=== PATIENT | female | born 1950 | race Caucasian/White ===

== ENCOUNTER 2018-05-03 19:04 | Emergency (ER) | payer MEDICARE, OTHER, SELFPAY ==
[2018-05-03 19:05] VITALS: BP 118/72; PULSE 85; RESP 18; TEMP 37.1; O2SAT 96; BMI 29.1
--- NOTE | 2018-05-03 19:30 | RAD_ITS ---
STUDY: X-RAY - RIGHT KNEE REASON FOR EXAM: Female, 67 years old. Fall. Knee pain. TECHNIQUE: 4 view(s) of the knee. COMPARISON: None. FINDINGS: Normal visualized distal femur. Normal visualized proximal tibia and fibula. Normal proximal tibiofibular articulation. There is mild medial compartmental arthrosis. Normal lateral femorotibial compartment. There is mild patellofemoral compartmental arthrosis. There is an ovoid calcification projected adjacent to the medial femoral condyle posteriorly which is likely secondary to remote trauma. RAD/Knee 3 Views IMPRESSION: Osteoarthritic changes with no acute abnormality. Focal calcification compatible with remote trauma. Electronically Signed: Darwin Ely MD at 20:17 EDT , Service support ,
[2018-05-03] MEDS: oxyCODONE 5 MG Tablet 10 MG PO ×2 (19:40→20:42)
--- NOTE | 2018-05-03 19:44 | ED.DCSUM_ITS ---
- ER Visit Summary Date of Service: 05/03/18 Chief Complaint: Atraumatic right knee pain History of Present Illness: The patient is a 67 F no significant past medical history. She states she had a prior left knee meniscal tear and thinks that now she has one in the right. She says it occurred with normal wear and tear no injury. She denies fever or redness. The right knee is more painful with ambulating and is mildly swollen. She denies other complaints. She is an appointment to see orthopedic physician at the [facility] Dr. Forrest Wakefield but wanted to have x-rays done today. She understands a meniscal tear cannot be seen on plain films. Physical Examination: Ill-appearing 67-year-old female. Vital signs are stable afebrile. She is in no acute distress. H EENT exam unremarkable. Neck nontender. Lungs clear to auscultation bilaterally. Heart regular rate and rhythm no murmur. Abdomen soft nontender. Extremities she is moving all 4. She has pain on palpation of the right medial knee joint. There is mild swelling and small effusion. There is no redness or warmth. She has decreased extension due to pain. ACL, PCL, MCL, LCL appear to be intact. Distally her right foot is neurovascularly intact with normal DP pulse. Normal touch sensation. Test Results: Right knee x-ray shows no acute abnormality. No fractures. Emergency Department Course and Treatment: I went over the x-rays with the patient. She was given 1 p.o. Percocet here be given prescription for 20. And follow-up with Dr. Greg Wakefield of orthopedics to have further evaluation of her knee and possibly an MRI. Treatment Plan: Ice and elevate knee. Motrin and limited Percocet for pain. Follow-up with orthopedic physician. Disposition: Discharge Impression: Acute right knee pain secondary to internal derangement This note was generated with [employer] dictation software. It may contain incorrect words, spelling, and punctuation that were not noted in review of the chart prior to signing ED Disposition - Plan for ED Patient: Chief Complaint: Lower Extremity Injury Referrals: Felix Araiza MD [Primary Care Provider] -
--- NOTE | 2018-05-03 20:20 | ED.DEP ---
ED Disposition - Plan for ED Patient: Disposition: Home or Assisted Living Chief Complaint: Lower Extremity Injury Instructions: ED Meniscal Injury Knee Poss Prescriptions: Oxycodone HCl/Acetaminophen [Percocet 5/325] 1 - 2 tab PO Q6H PRN PRN #20 tab PRN Reason: Pain Referrals: Forrest Wakefield MD [STAFF PHYSICIAN] - As soon as possible Additional Instructions: Ice and elevate right knee. Motrin and Percocet as needed for pain and inflammation. Call follow-up with Dr. Greg Wakefield. Your x-rays today were unremarkable. However the plain films do not evaluate for a meniscal injury. You may need further imaging such as an MRI.
[2018-05-03 20:43] VITALS: BP 143/60; PULSE 86; RESP 16; O2SAT 97
--- NOTE | 2018-05-03 20:53 | NURSING ---
signed medical release for xray
[2018-05-03] MEDS: Ondansetron 8 MG Tablet 16 MG PO (22:07)
--- NOTE | 2018-05-03 22:14 | ED.RN ---
pt called in with dizziness and nausea. Dr Jo ordered home pack of zofran. friend picked up for pt.
== END 2018-05-03 21:01 | disposition home or self-care (01) ==
PROVIDERS: Emergency Provider Emergency Medicine; Family Provider Family Medicine; PCP Family Medicine
DX: M25.561 Pain in right knee (principal); M23.91 Unspecified internal derangement of right knee
CPT/HCPCS: 73562; 99285

== ENCOUNTER 2018-08-24 15:47 | Outpatient (RCR) | payer MEDICARE, OTHER, SELFPAY ==
--- NOTE | 2018-08-24 17:20 | HP.PTEVAL_ITS ---
Patient's Visit Information CHINO CASEY is a 68 year old F referred to Physical Therapy by Ana Beltran DO with a diagnosis of R knee torn med and lat meniscus. Date of Evaluation: 08/24/18 Physical Therapist: Colton Vance, PT, - Visit Plan Frequency: 1x/Week Duration: 1 Week Plan: Issue HEP consisting of core and R LE strengthening ex's next visit. - Subjective Subjective: Pt reports she injured her R knee on 04/22/18. Pt reports she was walking a few days after that when she fell due to her R knee locking up. Pt reports it took her 3 days to get her knee to unlock. Pt reports she had an MRI which revealed a tear in her medial and lateral meniscus. Pt [id number] her surgeon told her e tears were too bad for surgery. Pt reports she would like to attempt PT first prior to having surgery. Pt reports sig diff with negotiating stairs secondary to pain. Pt also notes sleep difficulty at this time secondary to pain. 2/10 at rest, 8/10 at worst - Pain R knee Pain Intensity (Out of 10): 2 Pain Intensity Range: 8 - Objective Neuro: B LE sensation is WNL to light touch. B achilles reflex= 2/3. Girth at joint line: L knee 37 cm, R knee 38 cm. ROM: L knee 0-138 degrees. R knee 0-10-127 degrees. MMT: L knee 5/5 throughout. R knee 4/5 and painful - Goals Goal 1:: I with HEP in 1 visit Goal Time Frame: 1 Week - Rehabilitation Potential Physical Therapy Diagnosis: R knee pain, weakness, and diff with ambulation secondary to torn meniscus in R knee Rehabilitation Potential: Good - Anticipated Interventions Patient/Client Instruction: Educate patient on: Condition, Plan of Care For the Purpose of:: To improve self management Therapeutic Exercise to Include: Strength training, Endurance training, Balance training, Flexibilty training, Gait and locomotor training, Dynamic Lumbar Stabilization For the Purpose of:: To decrease pain, To increase ROM, To improve muscle performance and motor function Cryotherapy (ice pack, ice massage): Yes For the Purpose of:: To decrease pain Thank you for the opportunity to evaluate your patient. For Medicare and Medicare HMO plans, please review the plan of care and approve it. It will need to be FAXED BACK to us at [phone] for Medicare purposes. Please let me know if there are questions or concerns regarding this plan of care. Physician Signature: D ate:
--- NOTE | 2018-11-11 08:02 | HP.PT.NRP ---
HP - Discharge Summary (1) - Patient Information CHINO CASEY was seen in my office for initial evaluation on 08/24/18. The following Plan of Care was established for this patient: Initial Frequency: 1x/Week Initial Duration: 1 Week - Anticipated Interventions Patient/Client Instruction: Educate patient on: Condition, Plan of Care For the Purpose of:: To improve self management Therapeutic Exercise to Include: Strength training, Endurance training, Balance training, Flexibilty training, Gait and locomotor training, Dynamic Lumbar Stabilization For the Purpose of:: To decrease pain, To increase ROM, To improve muscle performance and motor function Cryotherapy (ice pack, ice massage): Yes For the Purpose of:: To decrease pain This patient was last seen in our office . Pertinent comments regarding their Physical therapy will appear below: Pt was evaluated for R knee pain on the date of 08/24/18. I planned on seeing this pt for 1 more visit to educate her on a HEP as discussed in our evaluation, however, pt has not returned through todays date. Pt is discontinued at this time. At this point I will be discontinuing this patient from physical therapy. I would be happy to see this patient again in the future if found appropriate by the physician. Thank you! Colton Vance, PT, ATC
== END 2018-08-24 19:00 | disposition home or self-care (01) ==
LOC: PT 15:47
PROVIDERS: Family Provider Family Medicine; PCP Family Medicine; Referring Provider Orthopaedic Surgery; Visit Provider Orthopaedic Surgery
DX: M17.11 Unilateral primary osteoarthritis, right knee (principal)
CPT/HCPCS: 97161

== ENCOUNTER → 2018-12-24 09:03 | Outpatient (CLI) | payer MEDICARE, OTHER, SELFPAY ==
[2018-12-15 14:17] VITALS: BMI 29.1
--- NOTE | 2018-12-24 09:06 | MRI_ITS ---
STUDY: MRI ABDOMEN WITH AND WITHOUT CONTRAST REASON FOR EXAM: Female, 68 years old. Palpable abdominal mass, sharp pain, 4 years. Possible spigelian hernia. TECHNIQUE: Standardized fat and water weighted pulse sequences were obtained in all 3 orthogonal planes post contrast administration. 7 ml of Gadavist contrast material was administered intravenously for the contrast portion of the examination. COMPARISON: None. FINDINGS: Imaging was obtained from the level of the kidneys to the level of the superior acetabula. Right lower quadrant small spigelian hernia containing fat. The hernia defect measures approximately 2.1 cm. Minimal lobulation of fat bulging into the hernia. Measuring approximately 2.3 cm in diameter. Osseous structures exhibit no acute abnormality. There is mild scoliosis and there is L2-L3 mild retrolisthesis, L4-L5 mild anterior listhesis, mild multilevel disc narrowing with disc desiccation and annular disc bulging between L2 and L5, with facet hypertrophy, contributing to mild multilevel foraminal stenosis. Visualized portions of the pancreas appear normal without ductal ectasia. Common bile duct nondilated. Normal appearance of the gallbladder. Normal appearance of the inferior most liver. Kidneys, collecting systems, ureters normal. Grossly normal urinary bladder evaluated only in the coronal and sagittal planes. Multiple fibroids of the uterine fundus. The largest measures 3.2 cm. There is no visible pelvic or retroperitoneal lymphadenopathy. Vascular structures are unremarkable. Evaluated loops of small and large bowel exhibits no acute other maladies. MRI/MRI Abd WITH and W/O Contrast IMPRESSION: Small right-sided spigelian hernia. Multilevel lumbar spondylosis. Mild scoliosis. Fibroid uterus. Electronically Signed: Ra Vee MD at 20:33 EST Tel , Service support ,
[2018-12-24 10:05] LABS: CREATININE FINGERSTICK 0.9 mg/dL (0.55-1.02); EGFR FINGERSTICK > 60.0000 mL/min (>60)
== END ==
PROVIDERS: Family Provider Family Medicine; PCP Family Medicine; Referring Provider Surgery; Visit Provider Surgery
DX: R19.01 Right upper quadrant abdominal swelling, mass and lump (principal); R10.9 Unspecified abdominal pain
CPT/HCPCS: 74183; A9585

== ENCOUNTER 2019-04-15 09:00 | Day surgery (SDC) | payer MEDICARE, OTHER, SELFPAY ==
[2019-03-03 07:47] VITALS: BMI 28.6
--- NOTE | 2019-03-17 04:12 | HP_ITS ---
Intake Vital Signs 03/17/19 Body Mass Index (BMI) 28.6 03/17/19 Height 5 ft 5 in 03/17/19 Weight: 170 lb 5 oz 03/17/19 Body Mass Index (BMI) 28.3 03/17/19 Blood Pressure 117/67 03/17/19 Blood Pressure Location Rt brachial 03/17/19 Blood Pressure Position Sitting 03/17/19 Respiratory Rate 20 H 03/17/19 Pulse Rate 81 03/17/19 Pulse Ox 98 Intake Visit Reasons: Abdominal Pain Chief Complaint: spigelian hernia/ increased abd pain Support Representative Required: No Is patient in pain?: Yes (1 ) Allergies meloxicam Adverse Reaction (Verified 03/17/19 13:23) diarrhea oxycodone [From Percocet] Adverse Reaction (Verified 03/17/19 13:23) GI Upset Medications albuterol sulfate HFA 90 mcg/actuation aerosol inhaler INHALATION 25 Days #18 g 03/01/19 [History Confirmed 03/17/19] beclomethasone dipropionate 40 mcg/actuation aerosol inhaler mcg INHALATION 03/01/19 [History Confirmed 03/17/19] conj estrogen-medroxyprogesterone 0.3 mg-1.5 mg tablet PO 28 Days #28 tab 03/01/19 [History Confirmed 03/17/19] diazepam 2 mg tablet 1 mg PO BID-QID PRN 15 Days #15 tab 03/03/19 [History Confirmed 03/17/19] aspirin 325 mg tablet 325 mg PO DAILY 03/17/19 [History Confirmed 03/17/19] Is last menstrual period known: No Post menopausal: Yes Patient : No PFSH Medical History Abnormal electrocardiogram (Chronic) Spigelian hernia (Acute) Right lower quadrant pain (Chronic) Osteoarthritis (Chronic) Osteopenia (Chronic) Rosacea (Chronic) Premature ventricular contractions (Resolved) Syncope (Resolved) Surgical History History of arthroscopy of left knee (Resolved) History of colonoscopy (Resolved) Family History Father Asthma Diabetes Mother Cancer Social History Smoking Status: Never smoker HPI HPI HPI: CHINO CASEY, is a 68 F who presents to the office today for HPI HPI Surgical H&P: Yes HPI: CHINO CASEY, is a 68 F who presents to the office today for an update history and physical for a right lower quadrant/spigelian hernia. Patient denies recent hospitalizations or illnesses. Patient notes she has been having increased discomfort in the evenings. She denies nausea, vomiting. She denies recent changes in bowel habits. She denies a cardiac history. She notes in the past her EKG's have been abnormal. Dr. Whiteside performed a cardiac clearance placing the patient at low risk. Patient's previous history per Dr. Judd: CHINO CASEY, is a 68 F who presents to the office today for for ongoing surgical follow-up and consultation regarding a 5-year history of right lower quadrant pain which recently has been aggravated. I initially had a chance to see her on December 15, 2018. At that time on clinical examination I was suspicious for a lipoma or spigelian hernia right lower quadrant. She had a CT scan performed at the [facility] and it was interpreted as normal. I actually got to speak to the interpreting radiologist and I felt that there was soft tissue fullness involving the oblique musculature right lower quadrant. He disagreed. Subsequently on December 24, 2018 at the [facility] I obtained an MRI. In the right lower quadrant there is a small spigelian hernia containing fat. The hernia defect measures 2.1 cm in diameter. CHINO CASEY, is a 68 F who presents to the office today for surgical consultation regarding a 4-5-year history of right lower quadrant abdominal pain. She states that initially it started as a stitch in her side. It is worse with walking. Her primary care physician is Dr. Felix Araiza and the patient is referred for second surgical opinion. A written copy of my surgical consult recommendations will be returned to Dr. Mike. June 2018 the patient took up swimming in hopes of strengthening her abdominal musculature. She complains however that when she tries to walk that she has this sharp pain in the right side. She cannot actually detect a mass or a bulge. She will rest and it will improve. Her last colonoscopy was 2016 was not remarkable. She does have degenerative disease of her knees. The patient was evaluated by Dr. David Schulte on April 30, 2018.. The etiology of her chest pain was not determined. He recommended obtaining a CT scan. On May 29, [address] scan was obtained at the [facility]. There was not felt to be any acute findings. The patient has not improved despite her swimming exercise and improved core strength ROS General General: Yes fatigue; no weight change, appetite, colon cancer, breast cancer or weakness HEENT HEENT: No difficulty swallowing, eye injury, eye surgery, swollen glands or hoarseness Endo Endocrine: No thyroid disease, diabetes mellitus, thyroid cancer, Hair loss, heat intolerance or cold intolerance Skin Skin: No rash or changing moles Breast Breast: No left breast lump, right breast lump, nipple discharge, breast pain, abnormal mammogram, abnormal US or breast enlargement Musc Musculoskeletal: Yes arthritis; no back problems, rheumatoid arthritis, gout or joint pain Cardio Cardiovascular: No murmur, pacemaker, heart disease, atrial fibrillation, high blood pressure, heart attack, heart stent, palpitations, shortness of breat with exertion or chest pain Psych Psychiatric: No depression, anxiety or hearing voices Resp Respiratory: No shortness of breath, No sleep apnea, No cough, No COPD, No asthma, No emphysema, No wheezing Gastro Gastrointestinal: Yes abdominal pain, No nausea or vomiting, No diarrhea, No constipation, No blood in stool, No acid reflux, No hemorrhoids, No ulcers, No gallbladder problem, No black,tarry stools Ge[place]any Hematologic: No blood thinners, No blood disorders, No bleeding, No anemia, No blood clots Neuro Neurologic: No weakness Exam Const General: cooperative, healthy appearing, comfortable, no acute distress [facility] Head: normal to inspection Eyes General: appearance normal, both eyes and all related structures Neck Neck: normal visual inspection Neck mass: No Chest Breast Palpation: No nipple discharge Resp Effort & Inspection: normal respiratory effort Auscultation: clear to auscultation bilaterally Cardio Rate: regular rate Rhythm: regular rhythm Heart Sounds: no murmurs GI Inspection: normal to inspection, obesity Palpation: soft, hernia (Right lower quadrant hernia palpated suprior to the right groin. Reducible.) Auscultation: normal bowel sounds Skin General: no rashes or lesions noted Neuro General: no focal motor deficits, CN's II-XI intact bilaterally Extrem General: normal to inspection Psych Appearance: grossly normal Affect: normal affect Assessment & Plan Problems 1. Spigelian hernia K43.[address] Judd will plan to perform a laparoscopic spigelian hernia repair with possible mesh. Procedure details, risks, and benefits have been reviewed with the patient. Post-operative instructions have been discussed with the patient. Patient has been offered sooner dates for her procedure. Patient is aware Dr. Judd will out of town for 2 weeks in March. Patient would like to continue to keep her date at the end of March. She has had the opportunity to ask and have questions answered. Patient verbally understands and agrees with the plan. Coding Level of Care Code No Charge Diagnoses Spigelian hernia K43.9 Comment Update H&P 03/17/19 7279 <Electronically signed by Chiquis thibodeaux PA-C> Date _ Chiquis Castellon PA-C I have re-examined the patient. There are no clinical changes since date of exam.
[2019-03-17 13:23] VITALS: BMI 28.6
--- NOTE | 2019-04-08 14:09 | EKG12_ITS ---
Test Reason : PREOP Blood Pressure : / mmHG Vent. Rate : 068 BPM Atrial Rate : 068 BPM P-R Int : 160 ms QRS Dur : 088 ms QT Int : 416 ms P-R-T Axes : 045 -28 054 degrees QTc Int : 442 ms Sinus rhythm with occasional Premature ventricular complexes Septal infarct (cited on or before 03-NOV-2012) Inferior infarct (cited on or before 03-NOV-2012) Abnormal ECG Confirmed by NITZA RICHARDS, DEONNA ([id number]), deputy editor in chief JUMA ONEILL ([id number]) on 04/12/2019 11:35:04 AM Referred By: Mike Judd Confirmed By:SHELLY GODDARD MD
[2019-04-08 14:27] LABS: Hematocrit 43.1 % (37-47); Hemoglobin 14.2 g/dl (12.0-15.0); Mean Corp Hgb Conc 32.9 g/gl (32-36); Mean Platelet Vol. 9.3 fl (6.2-12.0); Platelet Count 234 K/mm3 (150-450); RBC Distribution Width CV 13.4 % (11.6-14.6); RBC Distribution Width SD 43.5 fl (35.1-43.9); White Blood Count 6.7 K/mm3 (4.4-11.0)
[2019-04-08 14:35] LABS: Scan Indicated on CBC? Y/N NO
[2019-04-08 15:10] LABS: Anion Gap 6 (5-15); BUN 13 mg/dL (7-18); BUN/Creat Ratio 19.3 RATIO (10-20); Calcium,Total 9.2 mg/dL (8.5-10.1); Chloride 107 mmol/L (98-107); Creatinine, Serum 0.67 mg/dL (0.55-1.02); EST Glomerular Filtration Rate 93 mL/min (>60); Est Glom Filt Rate - Afr Amer 113 mL/min (>60); Glucose 103 mg/dL (74-106); Sodium Level 138 mmol/L (136-145)
[2019-04-15] VITALS (7 sets, daily range): BP systolic 88–115; BP diastolic 44–64; PULSE 52–65; RESP 16–18; TEMP 36.2–37.7; O2SAT 98–100; BMI 27.8
[2019-04-15] MEDS: Cefazolin 2 GM in 0.9% Normal Saline 100 ML IV (11:08)
[2019-04-15] MEDS: Bupivacaine Mpf 0.5% 30 ML VIAL (12:15)
--- NOTE | 2019-04-15 12:16 | DCINST_ITS ---
Discharge Diet: Light diet - advance as tolerated - if you have questions about your diet instructions, please talk to you doctor. Discharge Activity: May Not Drive - for 3-5 days or while taking narcotic pain medicine. May shower in (days): 1 Lifting Restrictions: 10 pounds Call your doctor if your incision/area has: Continuous Slow Oozing, Sudden Increased Bleeding, Increased Pain/ Swelling, Increased Redness, Foul Smelling Discharge Call your doctor if you observe: Fever of 101 or Higher Suture Line Care: Avoid Pulling/Pushing, Avoid Pinching/Bending Additional Dressing/Incision Instructions:: Change or remove dressing in 4 days. Leave steri-strips in place for 1 week. Allergies/Adverse Reactions: Allergies meloxicam Adverse Reaction (Verified 04/15/19 09:13) diarrhea oxycodone [From Percocet] Adverse Reaction (Verified 04/15/19 09:13) GI Upset Medications to take at Discharge albuterol sulfate HFA 90 mcg/actuation aerosol inhaler INHALATION PRN 25 Days #18 g 03/01/19 beclomethasone dipropionate 40 mcg/actuation aerosol inhaler mcg INHALATION 03/01/19 conj estrogen-medroxyprogesterone 0.3 mg-1.5 mg tablet 1 tab PO DAILY 28 Days #28 tab 03/01/19 diazepam 2 mg tablet 1 mg PO BID-QID PRN 15 Days #15 tab 03/03/19 Estrogen,Con/M-Progest Acet [Prempro 0.3 mg-1.5 mg Tablet] 1 tab PO DAILY 04/08/19 Hydrocodone Bitart/Apap 5-325 [[place] 5MG-325MG] 1 tablet PO Q6H PRN PRN 2 Days #5 tablet 04/15/19 The following prescriptions were given: Hydrocodone Bitart/Apap 5-325 [[place] 5MG-325MG] 1 tablet PO Q6H PRN PRN 2 Days #5 tablet PRN Reason: Pain Transmission Status: Sent to [facility]/pharmacy #[id number] Primary Care Physician: Felix Araiza MD [Primary Care Provider] - Test Results: Test results from this visit will be discussed in further detail at your follow- up appointment, if applicable. Please Follow Up With: Mike Judd MD - [phone] When: Call to make an appointment to be seen in about 10 days.
--- NOTE | 2019-04-15 12:18 | PCM.OPRPT ---
Problem List (1) Spigelian hernia Status: Acute Report of Operation Date of Procedure: 04/15/19 Pre-Operative Diagnosis: Right lower quadrant spigelian hernia Post-Operative Diagnosis: Same Surgery/Procedure Performed:: Laparoscopic right lower quadrant spigelian herniorrhaphy with [address] mesh lot number [id number]. Expiry date 06/16/2020. Reference #[id number] Description of Surgical Findings:: Timeout and informed consent was obtained. 68-year-old female taken the operative placement table underwent general endotracheal intubation anesthesia. Ancef 2 g given intravenously. The abdomen was sterilely prepped and draped. Ioban draping was used. 0.5% Marcaine was used as local anesthetic. Local was instilled at the umbilicus sharp dissection carried down through substance tissue holding sutures of 0 Vicryl placed varies needle inserted saline drop test performed the abdomen was insufflated with CO2 to a pressure of 10 minutes mercury pressure 5 Serna trocar inserted final and the laparoscope inserted evidence revealed a significant right lower quadrant spigelian hernia. I placed additional 5 mm trochars on the right mid abdomen in the left lower quadrant. I used shear scissors to incise the peritoneum and I completely dissected free the spaghetti and hernia getting access to the retrorectus space. Were needed hemostasis with 10 letter cautery. The inferior epigastrics did require securing with hemo-lock clips due to the some sidebranch bleeding which was nicely controlled. I then completely freed enough space to allow for placement of a ventral Israel mesh. The defect measured approximately 2-1/2 3 cm in diameter. Guided laparoscopically I made a transverse incision in the right lower quadrant directed to Darline through the fascial defect I then used that same spot to introduce the 8 cm diameter ventral Israel. The tails were secured to the fascia with interrupted 0 Nurolon. That fascia was closed externally with 0 Nurolon simple sutures. The mesh appeared to lay in a very nice position. I then reapproximated the peritoneum to completely obliterate access to the mesh. I did require several secure strap jacinto to achieve that. Good securement was achieved. The mesh appeared to lie in very nice position. I then performed a mini tap block on the right side visualizing with the laparoscope and using 0.5% Marcaine lateral to the hernia site and injecting into the transversalis fascia oblique space. Trochars removed under visualization the abdomen was allowed to deflate the CO2. The fascia at the umbilicus approximately a interrupted 0 Vicryl [id number] suture. Skin edges approximate interrupted 4-0 Monocryl subdermal stitches. Steri-Strips Telfa and OpSite dressings applied. Sponge and instrument and needle counts were reported to the surgeon to be correct. Blood loss was minimal at approximately 50 cc. She tolerated procedure well was taken to the recovery area in satisfactory condition. Specimens none. Drains none. Blood loss 50 cc. Mike Judd M.D., F.A.C.S. Type of Anesthesia:: General Anesthesiologist: Darwin Woodruff
[2019-04-15] MEDS: HYDROcodone Bitartrate/Apap 5/325 Tablet PO ×2 (13:11→13:51)
== END 2019-04-15 14:38 | disposition home or self-care (01) ==
LOC: SDC 09:01 → AC 09:03
PROVIDERS: Family Provider Family Medicine; PCP Family Medicine; Referring Provider Surgery; Visit Provider Surgery
PROC: 0WQF4ZZ Repair Abdominal Wall, Percutaneous Endoscopic Approach (ICD-10-PCS; CPT 49652; principal; 2019-04-15 10:40)
DX: K43.9 Ventral hernia without obstruction or gangrene (principal); M19.90 Unspecified osteoarthritis, unspecified site; Z79.899 Other long term (current) drug therapy; L71.9 Rosacea, unspecified
CPT/HCPCS: 49652; 36415; 80048; 85027; 93005; J7120; C1781; J2405

== ENCOUNTER 2019-06-23 19:33 | Emergency (ER) | payer MEDICARE, OTHER, SELFPAY ==
[2019-04-15 09:21] VITALS: BMI 27.8
[2019-06-23 19:34] VITALS: BP 153/82; PULSE 92; RESP 16; TEMP 36.3; O2SAT 96; BMI 28.8
--- NOTE | 2019-06-23 20:52 | ED.DEP ---
ED Disposition - Plan for ED Patient: Instructions: Dog Bite Prescriptions: Amox/Clavulanate Tablet [Augmentin Tablet] 875 mg PO Q12H #20 tablet Referrals: Felix Araiza MD [Primary Care Provider] -
--- NOTE | 2019-06-23 21:03 | ED.VISSUMM ---
- ER Visit Summary Date of Service: 06/23/19 Chief Complaint: Dog bite left leg History of Present Illness: The patient is a 69 F presenting with dog bite left leg. Patient states her friend's Randy Arellanopherd bit her left leg just prior to arrival. She is unsure of her last tetanus immunization. She states the bleeding is now controlled. She is requesting to be discharged home. She is able to ambulate. She denies other injuries. Physical Examination: Vitals are stable. Patient is afebrile. Alert no acute distress. HEENT exam is unremarkable. Neck is supple. Lungs are clear and equal bilaterally. Heart is regular rate and rhythm. Extremities 2.5 cm wound proximal left thigh with surrounding ecchymosis. Active full range of motion. Neurovascularly intact distally. Skin is warm and dry. No focal neurologic deficit. Remainder of exam is unremarkable. Emergency Department Course and Treatment: Patient was given tetanus IM. She was given Augmentin. Wound was copiously irrigated and dressed. Advised to watch for signs of infection. Advised to follow-up with her primary care physician. Advised return to ED for worsening complaints. Disposition: Discharge home Impression: Dog bite, left lower extremity This note was generated with [employer] dictation software. It may contain incorrect words, spelling, and punctuation that were not noted in review of the chart prior to signing ED Disposition - Plan for ED Patient: Instructions: Dog Bite Prescriptions: Amox/Clavulanate Tablet [Augmentin Tablet] 875 mg PO Q12H #20 tab Prescription Printed Referrals: Felix Araiza MD [Primary Care Provider] -
[2019-06-23] MEDS: Amox/Clavulanate 875 MG Tablet PO (21:06)
[2019-06-23] MEDS: Diphth,Pertuss(Acell),Tet Vac 0.5 ML Vial IM (21:06)
[2019-06-23 21:13] VITALS: BP 164/77; PULSE 96; RESP 20; O2SAT 97
[2019-06-23 21:29] VITALS: BP 151/77
== END 2019-06-23 21:30 | disposition home or self-care (01) ==
LOC: ED 20:14
PROVIDERS: Emergency Provider Emergency Medicine; Family Provider Family Medicine; PCP Family Medicine
DX: S70.372A Other superficial bite of left thigh, initial encounter (principal); W54.0XXA Bitten by dog, initial encounter; Y93.9 Activity, unspecified; Y92.9 Unspecified place or not applicable
CPT/HCPCS: 90715; 99283

== ENCOUNTER 2019-06-28 15:28 | Emergency (ER) | payer MEDICARE, OTHER, SELFPAY ==
[2019-06-28 15:29] VITALS: BP 162/82; PULSE 96; RESP 16; TEMP 37.1; O2SAT 96; BMI 28.6
--- NOTE | 2019-06-28 15:43 | VDLE_ITS ---
Reason For Study: Pain Procedure LEFT Exam performed portable in ED. GSV is normal. A preliminary report was called and/or faxed CFV is compressible, spontaneous, phasic, to [place]. competent, and demonstrates normal augmentation. FV is compressible, spontaneous, phasic, competent and demonstrates normal augmentation. POP V is compressible, spontaneous, phasic, competent and demonstrates normal augmentation. T/P Trunk is compressible. PTV is compressible. LT PerV is compressible. Interpretation Summary There is no evidence of left lower extremity deep vein thrombosis. Left great saphenous vein appears patent and compressible segmentally. Ordering Physician: Raymond Dodson Performed By: Hiwot Andrews RVT
[2019-06-28 16:08] LABS: Absolute Lymphocyte Count 1.18 X10^3/uL (0.83-4.51); Absolute Neutrophil Count 5.1 X10^3/uL (2.0-7.7); Basophil# 0.03 X10^3/uL; Basophil% 0.4 % (0-1); Eosinophil# 0.18 X10^3/uL; Eosinophils% 2.5 % (0-5); Hematocrit 41.4 % (37-47); Hemoglobin 13.6 g/dL (12.0-15.0); Lymphocyte # 1.18 X10^3/ul (4.0); Lymphocyte % 16.4 % (19-41); Mean Corp Hgb Conc 32.9 g/dL (32-36); Mean Corpuscular Hgb 29.2 pg (27.0-32.0); Mean Platelet Vol. 9.2 fl (6.2-12.0); Monocyte# 0.72 X10^3/uL; NRBC Flagged by Analyzer 0 % (0-5); Neutrophil # 5.08 X10^3/uL (2.7-7.7); Neutrophil % 70.4 % (47-70); Platelet Count 233 K/mm3 (150-450); RBC Distribution Width SD 42.5 fl (35.1-43.9); Red Blood Count 4.65 M/mm3 (4.2-5.4); White Blood Count 7.2 K/mm3 (4.4-11.0)
[2019-06-28 16:18] LABS: Erythrocyte Sedimentation Rate 15 mm/hr (0-30)
[2019-06-28 16:26] LABS: Anion Gap 7 (5-15); BUN 16 mg/dL (7-18); BUN/Creat Ratio 23.5 RATIO (10-20); CRP < 2.90 mg/L (0.0-3.0); Calcium,Total 9.2 mg/dL (8.5-10.1); Chloride 109 mmol/L (98-107); Creatinine, Serum 0.68 mg/dL (0.55-1.02); EST Glomerular Filtration Rate 91 mL/min (>60); Est Glom Filt Rate - Afr Amer 111 mL/min (>60); Estimated Creatinine Clearance 49.12 ml/min; Glucose 82 mg/dL (74-106); Potassium 3.9 mmol/L (3.5-5.1); Sodium Level 143 mmol/L (136-145)
--- NOTE | 2019-06-28 16:42 | ED.VISSUMM ---
- ER Visit Summary Date of Service: 06/28/19 Chief Complaint: Left thigh pain History of Present Illness: The patient is a [address] Dewey Bañuelos. She reports that 4 days ago she was bit on the proximal left thigh by a dog. States that she had her tetanus updated. She was placed on Augmentin. However, she reports that today the pain seems to be moving distally. And she has aching and swelling in her thigh. She reports that the pain is 3 out of 10 at worst and she is pain-free currently. Is worsened by bending her knee or walking. Is relieved by rest. She denies any paresthesias or weakness. No constitutional symptoms. No fever, chills, nausea, or vomiting. Physical Examination: Vitals: Stable. Afebrile. General: Well-nourished and well-developed. Head: Normocephalic atraumatic. Neck: Supple, no lymphadenopathy. No JVD. Nontender. Cardiovascular: Regular rate and rhythm. No murmurs. Respiratory: No respiratory distress. Clear to auscultation bilaterally. Abdominal: Soft, nontender, nondistended, normal bowel sounds. No guarding, rebound, or peritoneal signs. Back: Nontender. Extremities: Proximal left thigh there is a 3 cm laceration that appears to be healing well. There is no surrounding erythema, induration, or fluctuance. However, there is a large hematoma and contusion surrounding this. She has mild tenderness palpation to the distal left quadricep muscle. There is no soft tissue swelling. She has a 2+ dorsalis pedis pulses bilaterally. no edema. Skin: Normal color, no rash. Neurologic: Alert and oriented ?3. Cranial nerves II through XII are intact. Normal strength and sensation. Psych: Normal affect. Test Results: CBC is normal. Chem-7 shows a chloride of 109. Sed rate is 15. CRP is negative. Left lower extremity Doppler was negative. Emergency Department Course and Treatment: Patient refused pain medications. She is resting comfortably. Treatment Plan: At this time I discussed the patient that her pain is likely that her hematoma is beginning to dissolve and move distally. She is instructed to elevate her leg. Use Tylenol and/or ibuprofen for pain. Continue her Augmentin. Follow-up with her primary care physician in 2 days for wound check. Return to the emergency department for any worsening symptoms. Disposition: To home in [facility] and stable condition. Impression: 1. 4 days status post dog bite left thigh. 2. Hematoma left thigh. This note was generated with [employer] dictation software. It may contain incorrect words, spelling, and punctuation that were not noted in review of the chart prior to signing ED Disposition - Plan for ED Patient: Disposition: Home or Assisted Living Instructions: Hematoma Referrals: Felix Araiza MD [Primary Care Provider] - 2 Days for wound check
[2019-06-28 16:47] VITALS: BP 118/67; PULSE 72; RESP 15; O2SAT 99
== END 2019-06-28 16:48 | disposition home or self-care (01) ==
PROVIDERS: Emergency Provider Emergency Medicine; Family Provider Family Medicine; PCP Family Medicine
DX: S70.372A Other superficial bite of left thigh, initial encounter (principal); S70.12XA Contusion of left thigh, initial encounter; W54.0XXA Bitten by dog, initial encounter; Y93.9 Activity, unspecified; Y92.9 Unspecified place or not applicable
CPT/HCPCS: 80048; 85025; 85652; 86140; 93971; 99283

== ENCOUNTER 2019-08-06 08:11 | Day surgery (SDC) | payer MEDICARE, OTHER, SELFPAY ==
[2019-07-07 10:57] VITALS: BMI 28.6
--- NOTE | 2019-08-05 18:32 | PCM.HP.BLA ---
History and Physical Date of Admission: 08/06/19 HISTORY OF PRESENT ILLNESS 69 year old woman presents with soft tissue masses bilateral upper medial eyelids that have increased in size over the last several months. She denies trauma. She denies fever. She denies recent infection. She denies any visual problems. PAST MEDICAL HISTORY Spigelian hernia Right lower quadrant pain Cataracts, bilateral Skin cancer Osteoarthritis Osteopenia Rosacea Premature ventricular contractions Syncope PAST SURGICAL HISTORY S/P laparoscopic hernia repair arthroscopy of left knee colonoscopy ALLERGIES meloxicam oxycodone [From Percocet] MEDICATIONS albuterol sulfate HFA beclomethasone dipropionate Estrogen,Con/M-Progest Acet [Prempro 0.3 mg-1.5 mg Tablet] FAMILY HISTORY Father - Asthma, Diabetes, Alcoholism, Anxiety, COPD (chronic obstructive pulmonary disease) Mother - Cancer Grandfather - Diabetes Grandmother - Diabetes SOCIAL HISTORY Smoking Status: Never smoker alcohol intake: current substance use type: does not use REVIEW OF SYSTEMS General - Denies fever, fatigue, and weight loss. Eyes - Has cataracts. Denies glaucoma. ENT - Denies nasal congestion and sore throat. Endocrine - Denies excessive thirst and urination. Skin - Has personal history of skin cancer. Has enlarging soft tissue masses bilateral upper medial eyelids. Musculoskeletal - Denies joint pain, joint stiffness, weakness of muscles and joints, back pain. Has arthritis. Neuro - Denies headaches. Cardiovascular - Has occasional chest pain. Denies fatigue, and shortness of breath with exertion. Psych - Denies anxiety and depression. Respiratory - Denies chronic cough and shortness of breath. Gastrointestinal - Denies nausea, vomiting, diarrhea, and constipation. Hematologic - Denies abnormal bruising and bleeding. Genitourinary - Denies hematuria and urinary frequency. PHYSICAL EXAMINATION General - Alert and Oriented. HEENT - PERRL. EOMI. Throat is clear. On the bilateral upper medial eyelids are soft tissue masses. They are mobile. Measures 1.5 cm. Some adherent overlying skin. No ulceration. No other suspicious lesions noted. Neck - Supple and nontender. No cervical adenopathy. No suspicious lesions noted. Lungs - Clear to auscultation. Heart - Regular rate and rhythm. Abdomen - Soft and nondistended. Extremities - FROM. No axillary adenopathy. Radial pulses are palpable. No suspicious lesions noted. Neuro - CN II-XII grossly intact. Psych - Normal mood and affect. ASSESSMENT 1. 1.5 cm soft tissue mass left upper medial eyelid. 2. 1.5 cm soft tissue mass right upper medial eyelid. 3. Personal history of skin cancer. PLAN Recommend excision of these soft tissue masses bilateral upper medial eyelids and send them to Pathology for analysis to rule out carcinoma. Due to some adherence of skin to the underlying mass, if there is difficulty with wound closure, she may need skin grafting. Surgery will be done on an outpatient basis under local anesthesia and IV sedation. Patient was informed of the risks and complications of the procedure including alternatives to surgery. These were discussed with the patient personally. Patient voices understanding and wishes to proceed. Some of the risks and complications were included in a form from the [employer] [employer].
[2019-08-06 08:50] VITALS: BP 110/55; PULSE 72; RESP 15; TEMP 37.2; O2SAT 100; BMI 28.2
[2019-08-06] MEDS: Lactated Ringers 1,000 ML 100 ML IV (09:02)
--- NOTE | 2019-08-06 10:00 | LES_PTH ---
PATIENT: CHINO CASEY LOC: [facility] [place] U#:[id number] AGE/SX: 69/F ROOM: RE08/06/[address]: Dr. Eric Stanton MD : 1950 BED: DIS: 08/06/2019 SPEC #: [id number] RECD: 08/06/19 11:53 STATUS: ROSE MARY REMarcos #: [id number] RAOUL: 08/06/19 10:[address]: Eric Stanton DEPT: SURGICAL PATHOLOGY RECD BY: Rogelio Andrade ENTERED: 08/06/19 13:05 SP TYPE: Lesion OTHR DR: Dr. Felix Araiza MD Tissues: A - Skin of eyelid, NOS B - Skin of eyelid, NOS Procedures: Surgery Specimen Level III HEADER OPERATION: Excision painful soft tissue masses, upper medial eyelids PRE-OP DIAGNOSIS: 1.5 cm soft tissue mass left upper medial eyelid; 1.5 cm soft tissue mass right upper medial eyelid; history skin cancer TISSUE SUBMITTED: A - Soft tissue mass upper right eyelid, B - Soft tissue mass upper left eyelid MICROSCOPIC DIAGNOSIS A. Soft tissue mass, upper right eyelid, excision: Mature adipose tissue, consistent with lipoma. A piece of skin, no pathologic diagnosis. B. Soft tissue mass, upper left eyelid, excision: Mature adipose tissue, consistent with lipoma. A piece of skin, no pathologic diagnosis. VERNON:sourav 08/09/19 MICROSCOPIC DESCRIPTION Slides are reviewed. GROSS DESCRIPTION A - Received in fixative is one container labeled with the patient's name and designated soft tissue mass upper right eyelid. The specimen consists of an irregular piece of yellow adipose tissue measuring 1.8 x 1.5 x 0.6 cm. This piece is bisected and reveals a focal area of adipose cut surfaces without area of hemorrhage, necrosis or cystic degeneration. Also present in the container are two detached pieces of skin measuring in aggregate 0.5 x 0.2 x 0.1 cm. The entire specimen is submitted in one cassette. B - Received in fixative is one container labeled with the patient's name and designated soft tissue mass upper left eyelid. The specimen consists of a piece of quinteros-yellow adipose tissue measuring 2 x 1 x 0.8 cm. Also present in the container is a piece of skin measuring 1 x 0.2 x 0.1 cm. The entire specimen is submitted in one cassette. / VERNON:sourav 08/06/19 TC:1 CPT: 79904 x2
[2019-08-06] MEDS: Mupirocin Ointment 22gm Tube 1 APPLIC (11:02)
--- NOTE | 2019-08-06 11:04 | OP.PCM_ITS ---
Report of Operation Date of Procedure: 08/06/19 Pre-Operative Diagnosis: 1. 1.5 cm soft tissue mass left upper medial eyelid. 2. 1.5 cm soft tissue mass right upper medial eyelid. 3. Personal history of skin cancer. Post-Operative Diagnosis: 1. 1.5 cm submuscular soft tissue mass left upper medial eyelid. 2. 1.5 cm submuscular soft tissue mass right upper medial eyelid. 3. Personal history of skin cancer. Surgery/Procedure Performed:: 1. Excision 1.5 cm submuscular soft tissue mass left upper medial eyelid. 2. Excision 1.5 cm submuscular soft tissue mass right upper medial eyelid. Description of Surgical Findings:: 69 year old woman presents with soft tissue masses bilateral upper medial eyelids that have increased in size over the last several months. She denies trauma. She denies fever. She denies recent infection. She denies any visual problems. Patient was informed of the risks and complications of the procedure including alternatives to surgery. These were discussed with the patient personally. Patient voices understanding and wishes to proceed. Some of the risks and complications were included in a form from the [place] [employer]. robotics technician: None Type of Anesthesia:: General Specimen's removed: 1. Submuscular soft tissue mass left upper medial eyelid to Pathology. 2. Submuscular soft tissue mass right upper medial eyelid to Pathology. Drains: None. Estimated Blood Loss (mL): 2 ml. Description of Procedure: Patient was taken to OR in supine position and was placed under general anesthesia. The upper face and eyelids were prepped and draped in the usual fashion. SCD's were placed for DVT prophylaxis. Perioperative antibiotics were given intravenously. Using xylocaine with epinephrine, the soft tissue masses bilateral upper medial eyelids were infiltrated. After waiting 5 minutes for the anesthetic to take effect, I made an incision first on the left upper medial eyelid and then on the right upper medial eyelid. Dissection was carried down to the orbicularis muscle. The soft tissue mass was located in a submuscular position. I the muscle to get exposure to the soft tissue mass. It was dissected free and hemostasis was obtained with electrocautery. The soft tissue mass was sent to Pathology for analysis to rule out carcinoma. I then proceeded to the right upper medial eyelid and made an incision over the mass. Dissection was carried down to the orbicularis muscle. The soft tissue m ass was located in a submuscular position. I the muscle to get exposure to the soft tissue mass. It was dissected free and hemostasis was obtained with electrocautery. The soft tissue mass was sent to Pathology for analysis to rule out carcinoma. I approximated the muscle on both eyelids with 5-0 Monocryl interrupted sutures. The skin on both eyelids was approximated with 5-0 fast absorbing interrupted sutures. Antibiotic ointment was applied to the suture line. Anesthesia gave the patient Decadron to help with postop swelling. Patient tolerated the procedure well and was sent to PACU in satisfactory condition. Patient will be sent home on antibiotics and pain medication. Patient will followup in a week for a wound check and for discussion of the pathology report. Grafts/Implants Used: None. - Complications None. - Admit VTE Documentation VTE Present on Admission: No VTE Mechan Device Prophylaxis: SCD's VTE Pharm Prophylaxis ordered?: No Code Visit Surgery Charges CPT - 05014 ICD-10 - R22.0, Z85.828 87282 R22.0, Z85.828
[2019-08-06 11:12] VITALS: BP 110/55; BP 128/74; PULSE 74; RESP 16; TEMP 36.3; O2SAT 98
--- NOTE | 2019-08-06 11:14 | DCINST_ITS ---
You will use the following diet at home:: No restrictions Discharge Activity: May not drive while taking narcotic pain medications., May Shower - in two days., - - no heavy lifting. keep head elevated. May shower in (days): 2 May resume sexual activity in: No Restrictions Ice area for (Minutes): 5 - as needed for periorbital swelling. Weight Bearing Status: Weight bearing as tolerated Lifting Restrictions: 10 lbs. Keep extremity elevated above heart level: - - elevate head. Call your doctor if your incision/area has: Continuous Slow Oozing, Sudden Increased Bleeding, Increased Pain/ Swelling, Increased Redness, Foul Smelling Discharge, Swelling at the incision site, - - worsening vision. Call your doctor if you observe: Fever of 101 or Higher, Coldness, Increased Pain, Shortness of breath, Chest pain, Calf discomfort, Uncontrolled pain, - Suture Line Care: - - apply antibiotic ointment to suture line daily. Cleanse incision/area with: - - may get incisions wet in the shower in two days. Allergies/Adverse Reactions: Allergies meloxicam Adverse Reaction (Verified 08/06/19 08:49) diarrhea oxycodone [From Percocet] Adverse Reaction (Verified 08/06/19 08:49) GI Upset Medications to take at Discharge albuterol sulfate HFA 90 mcg/actuation aerosol inhaler 1 dose INHALATION Q6H PRN PRN 25 Days #18 g 03/01/19 beclomethasone dipropionate 40 mcg/actuation aerosol inhaler 40 mcg INHALATION DAILY PRN 03/01/19 Estrogen,Con/M-Progest Acet [Prempro 0.3 mg-1.5 mg Tablet] 1 tab PO DAILY 04/08/19 Clindamycin HCl [Cleocin] 300 mg PO TID #12 cap 08/06/19 Diazepam [Valium] 5 mg PO TID PRN PRN #10 tab 08/06/19 Lactobacillus Acidophilus/Fos [Acidophilus Probiotic Tablet] 1 ea PO BID #10 tab 08/06/19 Oxycodone HCl/Acetaminophen [Percocet 5/325] 1 tab PO 4X/DAY PRN PRN 4 Days #15 tab 08/06/19 The following prescriptions were given: Lactobacillus Acidophilus/Fos [Acidophilus Probiotic Tablet] 1 ea PO BID #10 tab Prescription Printed Clindamycin HCl [Cleocin] 300 mg PO TID #12 cap Prescription Printed Oxycodone HCl/Acetaminophen [Percocet 5/325] 1 tab PO 4X/DAY PRN PRN 4 Days #15 tab PRN Reason: Pain Score 4-5/10 Prescription Printed Diazepam [Valium] 5 mg PO TID PRN PRN #10 tab PRN Reason: Spasms Prescription Printed Primary Care Physician: Felix Araiza MD [Primary Care Provider] - Test Results: Test results from this visit will be discussed in further detail at your follow- up appointment, if applicable. Please Follow Up With: Eric Stanton MD When: within a week. call [phone] for appt. Proposed Discharge Date: 08/06/19
[2019-08-06 11:15] VITALS: BP 110/55; BP 126/72; PULSE 79; RESP 16; O2SAT 98
[2019-08-06 11:30] VITALS: BP 110/55; BP 140/70; PULSE 77; RESP 16; O2SAT 98
[2019-08-06 11:46] VITALS: BP 110/55; BP 124/55; PULSE 70; RESP 16; TEMP 36.5; O2SAT 97
[2019-08-06] MEDS: Acetaminophen 325 MG Tablet PO (12:11)
[2019-08-06] MEDS: oxyCODONE 5 MG Tablet PO (12:11)
[2019-08-06 13:02] VITALS: BP 110/55; BP 130/79; PULSE 81; RESP 16; TEMP 36.5; O2SAT 96
== END 2019-08-06 13:05 | disposition home or self-care (01) ==
LOC: SDC 08:12 → AC 08:14
PROVIDERS: Family Provider Family Medicine; PCP Family Medicine; Referring Provider Surgery; Visit Provider Surgery
PROC: (CPT 21013; principal; 2019-08-06 09:45)
DX: R22.0 Localized swelling, mass and lump, head (principal); Z85.828 Personal history of other malignant neoplasm of skin; M19.90 Unspecified osteoarthritis, unspecified site; M85.80 Other specified disorders of bone density and structure, unspecified site; K43.9 Ventral hernia without obstruction or gangrene; L71.9 Rosacea, unspecified; J45.909 Unspecified asthma, uncomplicated; Z78.0 Asymptomatic menopausal state
CPT/HCPCS: 00300; 21013; 88304; 88305; J7120; J2405

== ENCOUNTER 2021-04-16 12:10 | Emergency (ER) | payer MEDICARE, OTHER, SELFPAY ==
[2019-08-12 14:05] VITALS: BMI 28.2
[2021-04-16 12:16] VITALS: BP 107/47; PULSE 72; RESP 15; TEMP 36.8; O2SAT 100; BMI 28.3
--- NOTE | 2021-04-16 12:46 | EX.ED.DYSGE1 ---
HPI History of Present Illness Chief Complaint: Nausea/Vomiting Informant: patient Narrative Narrative: 70-year-old female presents to the emergency department for vomiting and diarrhea. Symptoms began abruptly this morning. She is she had a couple of hard bowel movements followed by diarrhea. States the diarrhea is watery yellow. No blood. This persisted most of the morning and now she is having vomiting. She notes the occasional abdominal cramping. She ate dinner last night person she had dinner with does not have any symptoms. She had similar symptoms intermittently over the past week. She was exposed to a sick child on Friday night. [facility] Medical History (Updated 04/16/21 @ 14:[address] Jaxon Barlow DO) Abnormal electrocardiogram Cataracts, bilateral Osteoarthritis Osteopenia Premature ventricular contractions Right lower quadrant pain Rosacea Seasonal allergies Skin cancer Spigelian hernia Syncope Home Medications albuterol sulfate 90 mcg/actuation aerosol inhaler 1 dose INHALATION Q6H PRN PRN 25 Days #18 g 03/01/19 [History Last Taken Unknown] beclomethasone dipropionate 40 mcg/actuation aerosol inhaler 40 mcg INHALATION DAILY PRN 03/01/19 [History Last Taken Unknown] conj estrog-medroxyprogest janes 1 tab PO DAILY 04/08/19 [History Last Taken 08/06/19 07:30] ondansetron 4 mg PO Q6H PRN PRN #15 tab 04/16/21 [Rx Last Taken Unknown] Allergy/AdvReac Type Severity Reaction Status Date / Time meloxicam AdvReac diarrhea Verified 04/16/21 12:16 oxycodone [From Percocet] AdvReac GI Upset Verified 04/16/21 12:16 Family History Father Asthma Diabetes Alcoholism Anxiety COPD (chronic obstructive pulmonary disease) Mother Cancer Grandfather Diabetes Grandmother Diabetes Surgical History History of arthroscopy of left knee History of colonoscopy S/P laparoscopic hernia repair (~04/15/19) Social History Smoking Status: Never smoker alcohol intake: current substance use type: does not use additional social history: DOES NOT USE ASPIRIN DOES NOT USE IBUPROFEN ROS ROS ED Constitutional Constitutional ED: Denies chills or weight loss Eyes Eyes: Denies change in vision or diplopia ENT ENT ED: Denies ear pain, rhinorrhea or sore throat Cardiovascular Cardiovascular: Denies chest pain, orthopnea, palpitations or racing heartbeat Respiratory/Chest Respiratory/Chest: Denies cough, dyspnea or orthopnea Gastrointestinal Gastrointestinal: Reports diarrhea, nausea and vomiting; Denies abdominal pain Genitourinary Genitourinary ED: Denies dysuria, hematuria or urinary frequency Musculoskeletal Musculoskeletal: Denies arthralgias or myalgias Integumentary Denies abscess or rash Neurologic Neurologic: Denies headache(s) or weakness Psychiatric Psychiatric: Denies anxiety, depression, suicidal ideation or suicidal thoughts Endocrine Endocrinology: Denies polydipsia, polyphagia or polyuria Allergic/Immunologic Allergic/Immunologic ED: Denies mouth swelling, tongue swelling or urticaria EXAM Physical Exam Const Vital Signs: 04/16/21 12:16 Temperature 98.3 F Temperature Source Temporal Pulse Rate 72 Respiratory Rate 15 Blood Pressure 107/47 L Blood Pressure Mean 67 Pulse Ox 100 Oxygen Delivery Method Room Air Positive well nourished and well developed General Appearance ED: well developed HEENT Reports normocephalic, head/scalp atraumatic and moist mucous membranes Eyes PERRL and EOMs intact bilaterally Neck no lymphadenopathy, supple and no JVD Resp normal respiratory effort and clear to auscultation bilaterally Cardio regular rate, regular rhythm and no murmurs GI normal to inspection, nondistended, normoactive bowel sounds and non-tender Palpation: soft Back/Spine no CVA tenderness and normal ROM Extremity normal to inspection General Extremety ED: Negative for edema General Extremity: Negative for edema Neuro oriented x3 and CN's II-XII intact bilaterally Sensorium / Orientation: alert Motor Exam: strength 5/5 throughout Psych mental status grossly normal Mood & Affect: Negative for depressed or tearful Skin no rashes or lesions noted and no wounds MDM MDM MDM Narrative Medical decision making narrative: Basic blood work showed a white count 11.8. Glucose 134. Patient received IV fluids and Zofran. She is feeling better on repeat examination patient would like to have a Covid test that this will be sent. But I do not think she needs to wait for the results. Lab Data Attestation: I reviewed the patient's lab results. Labs: Laboratory Results - last 24 hr 04/16/21 04/16/21 13:10 13:10 WBC 11.8 H RBC 5.12 Hgb 14.8 Hct 45.7 MCV 89.3 MCH 28.9 MCHC 32.4 RDW Std Deviation 42.5 RDW Coeff of Chay 12.9 Plt Count 213 MPV 9.5 Immature Gran % (Auto) 0.300 Neut % (Auto) 92.5 H Lymph % (Auto) 1.7 L Kidder % (Auto) 5.2 Eos % (Auto) 0.1 Baso % (Auto) 0.2 Absolute Neuts (auto) 10.9 H Absolute Lymphs (auto) 0.20 L Nucleated RBC % 0 Differential Comment Platelet Estimate ADEQUATE RBC Morphology NORM C+C Sodium 139 Potassium 4.7 Chloride 106 Carbon Dioxide 25.0 Anion Gap 8 BUN 16 Creatinine 0.79 Estim Creat Clear Calc 48.45 Est GFR (MDRD) Af Amer 93 Est GFR (MDRD) Non-Af 77 BUN/Creatinine Ratio 20.3 H Glucose 134 H Calcium 9.0 Total Bilirubin 0.60 AST 24 ALT 20 Alkaline Phosphatase 71 Total Protein 7.5 Albumin 3.6 Globulin 3.9 Albumin/Globulin Ratio 0.9 Lipase 85 Discharge Plan Triage Chief Complaint: Nausea/Vomiting ED Provider: Jaxon Barlow Dx/Rx/DC Orders Clinical Impression: Gastroenteritis Instructions: ED Food Poison Or Gastroenteritis Prescriptions: New ondansetron [ondansetron] 4 MG tablet 4 mg PO Q6H PRN PRN (Reason: Nausea) Qty: 15 RF: 0 No Action albuterol sulfate 90 mcg/actuation HFA aerosol inhaler 1 dose INHALATION Q6H PRN PRN (Reason: Shortness Of Breath) 25 Days Qty: 18 RF: 0 beclomethasone dipropionate 40 mcg/actuation aerosol inhaler 40 mcg/actuation aerosol 40 mcg INHALATION DAILY PRN (Reason: Asthma) RF: 0 conj estrog-medroxyprogest janes 1 EACH tablet 1 tab PO DAILY RF: 0 Primary Care Provider: Felix Araiza Referrals: Felix Araiza MD [Primary Care Provider] - 1 Week Disposition Disposition: Home, Self Care
[2021-04-16] MEDS: Ondansetron 4 MG/2 ML Vial IV (13:16)
[2021-04-16] MEDS: Dicyclomine 10 MG Capsule 20 MG PO (13:17)
[2021-04-16] MEDS: 0.9% Normal Saline 1,000 ML 1000 ML IV (13:17)
[2021-04-16 13:31] LABS: Absolute Neutrophil Count 10.9 X10^3/uL (2.0-7.7); Basophil# 0.02 X10^3/uL; Basophil% 0.2 % (0-1); Eosinophil# 0.01 X10^3/uL; Eosinophils% 0.1 % (0-5); Hematocrit 45.7 % (37-47); Hemoglobin 14.8 g/dL (12.0-15.0); Lymphocyte % 1.7 % (19-41); Mean Corp Hgb Conc 32.4 g/dL (32-36); Mean Corpuscular Hgb 28.9 pg (27.0-32.0); Mean Corpuscular Volume 89.3 fL (81-99); Mean Platelet Vol. 9.5 fl (6.2-12.0); Monocyte# 0.62 X10^3/uL; Monocyte% 5.2 % (0-10); NRBC Flagged by Analyzer 0 % (0-5); Neutrophil # 10.92 X10^3/uL (2.7-7.7); Neutrophil % 92.5 % (47-70); POSITIVE DIFFERENTIAL YES; Platelet Count 213 K/mm3 (150-450); RBC Distribution Width CV 12.9 % (11.6-14.6); RBC Distribution Width SD 42.5 fl (35.1-43.9); Red Blood Count 5.12 M/mm3 (4.2-5.4); White Blood Count 11.8 K/mm3 (4.4-11.0)
[2021-04-16 13:39] LABS: Differential Indicated SCAN CRITERIA MET
[2021-04-16 13:49] LABS: ALB/GLOB Ratio 0.9 RATIO (0.9-2.4); AST(SGOT) 24 U/L (15-37); Alanine Aminotransfer ALT/SGPT 20 U/L (13-56); Albumin, Serum 3.6 g/dL (3.2-5.0); Alkaline Phosphatase 71 U/L (45-117); Anion Gap 8 (5-15); BUN 16 mg/dL (7-18); BUN/Creat Ratio 20.3 RATIO (10-20); Chloride 106 mmol/L (98-107); Creatinine, Serum 0.79 mg/dL (0.55-1.02); EST Glomerular Filtration Rate 77 mL/min (>60); Est Glom Filt Rate - Afr Amer 93 mL/min (>60); Estimated Creatinine Clearance 48.45 ml/min; Globulin 3.9 g/dL (2.2-4.2); Glucose 134 mg/dL (74-106); Lipase 85 U/L (73-393); Potassium 4.7 mmol/L (3.5-5.1); Protein, Total 7.5 g/dL (6.4-8.2); Sodium Level 139 mmol/L (136-145)
[2021-04-16 13:57] LABS: Platelet Estimate ADEQUATE (ADEQ); Red Cell Morphology NORM C+C NORMAL (NORM C&C)
== END 2021-04-16 14:38 | disposition home or self-care (01) ==
PROVIDERS: Emergency Provider Emergency Medicine; PCP Family Medicine
DX: K52.9 Noninfective gastroenteritis and colitis, unspecified (principal); M19.90 Unspecified osteoarthritis, unspecified site; M85.80 Other specified disorders of bone density and structure, unspecified site; L71.9 Rosacea, unspecified; H26.9 Unspecified cataract; Z85.828 Personal history of other malignant neoplasm of skin
CPT/HCPCS: 80053; 83690; 85025; 87426; 96361; 96374; 99284; J7030; A4216; J2405

== ENCOUNTER → 2021-07-04 15:15 | Outpatient (CLI) | payer MEDICARE, OTHER, SELFPAY ==
[2021-07-04 15:54] LABS: Absolute Lymphocyte Count 1.27 X10^3/uL (0.83-4.51); Basophil# 0.04 X10^3/uL; Basophil% 0.7 % (0-1); Eosinophil# 0.17 X10^3/uL; Eosinophils% 2.8 % (0-5); Hematocrit 43.2 % (37-47); Lymphocyte # 1.27 X10^3/ul (0.83-4.51); Lymphocyte % 20.9 % (19-41); Mean Corp Hgb Conc 32.4 g/dL (32-36); Mean Corpuscular Volume 89.6 fL (81-99); Mean Platelet Vol. 9.6 fl (6.2-12.0); Monocyte# 0.59 X10^3/uL; Monocyte% 9.7 % (0-10); NRBC Flagged by Analyzer 0 % (0-5); Neutrophil # 3.98 X10^3/uL (2.7-7.7); Neutrophil % 65.6 % (47-70); Platelet Count 257 K/mm3 (150-450); RBC Distribution Width SD 42.6 fl (35.1-43.9); Red Blood Count 4.82 M/mm3 (4.2-5.4); White Blood Count 6.1 K/mm3 (4.4-11.0)
[2021-07-04 16:31] LABS: ALB/GLOB Ratio 0.9 RATIO (0.9-2.4); AST(SGOT) 18 U/L (15-37); Alanine Aminotransfer ALT/SGPT 25 U/L (13-56); Albumin, Serum 3.4 g/dL (3.2-5.0); Alkaline Phosphatase 75 U/L (45-117); Anion Gap 7 (5-15); BUN 18 mg/dL (7-18); BUN/Creat Ratio 28.9 RATIO (10-20); Calcium,Total 9.3 mg/dL (8.5-10.1); Chloride 106 mmol/L (98-107); Creatinine, Serum 0.62 mg/dL (0.55-1.02); EST Glomerular Filtration Rate 101 mL/min (>60); Est Glom Filt Rate - Afr Amer 122 mL/min (>60); Free T3 2.6 pg/mL (2.18-3.98); Globulin 3.9 g/dL (2.2-4.2); Glucose 146 mg/dL (74-106); Protein, Total 7.3 g/dL (6.4-8.2); Sodium Level 138 mmol/L (136-145); T4 Free Direct 0.96 ng/dL (0.76-1.46); Thyroid Stim Hormone (TSH) 2.54 uIU/mL (0.358-3.74)
== END ==
PROVIDERS: PCP Family Medicine; Visit Provider Physician Assistant Medical
DX: R53.83 Other fatigue (principal); R07.9 Chest pain, unspecified; R10.31 Right lower quadrant pain; R23.8 Other skin changes
CPT/HCPCS: 36415; 80053; 84439; 84443; 84481; 85025

== ENCOUNTER → 2023-02-27 | Outpatient (CLI) | payer MEDICARE, OTHER, SELFPAY ==
--- NOTE | 2023-02-27 09:10 | BI_ITS ---
MAMMOGRAPHY - BILATERAL DIAGNOSTIC REASON FOR EXAM: Female, 72 years old. History of palpable lumps in both breasts. PERTINENT HISTORY: Non-contributory. TECHNIQUE: Digital bilateral breast juwan (3D mammographic acquisition) in the CC and MLO projections. 2-D mediolateral oblique (MLO) and craniocaudad (CC) views of both breasts were obtained. CAD: Full Field Digital Mammography with Computer Added Detection was performed. COMPARISON: Comparison is made with prior outside examination dated February 08, 2021. FINDINGS: Breast Composition: The breasts are heterogeneously dense, which may obscure small masses. There are no dominant masses or suspicious calcifications. Stable asymmetry of breast tissue normal breast tissue is seen in the retroareolar region of the left breast as compared to the right. Stable appearance of the benign appearing axillary lymph nodes. No other significant abnormalities are identified. There has been no significant change since the prior study. BI/DIAG MAMM W/CAD, BILAT IMPRESSION: Stable bilateral diagnostic mammogram. With the patient''s history of a palpable lumps, but ultrasound correlation is recommended. ASSESSMENT CATEGORY: BIRADS Category 0: Incomplete. Need additional imaging evaluation. A letter regarding these results will be sent to the patient by the facility within 30 days. Approximately 10% of breast cancers are not detected by mammography. A normal mammogram should not delay biopsy of a clinically suspicious abnormality. Electronically Signed: Carmine Alexander MD at 10:01 EDT ,
--- NOTE | 2023-02-27 09:10 | US_ITS ---
STUDY: ULTRASOUND BREAST - RIGHT REASON FOR EXAM: Female, 72 years old. Palpable lump left breast. TECHNIQUE: Axial and longitudinal images of the RIGHT breast were performed with a high resolution ultrasound transducer. # OF IMAGES: 19 COMPARISON: Comparison is made with prior mammogram done earlier today. FINDINGS: RIGHT Breast: The upper aspect of the left breast was examined with ultrasound. There is heterogeneously dense fibroglandular tissue. No sonographic abnormality is seen. US/Breast Limited Unilateral IMPRESSION: No sonographic abnormalities seen. ASSESSMENT CATEGORY: BIRADS Category 1: Negative. A letter regarding these results will be sent to the patient by the facility within 30 days. Electronically Signed: Carmine Alexander MD at 10:35 EDT ,
--- NOTE | 2023-02-27 10:05 | BD_ITS ---
STUDY: DUAL ENERGY X-RAY ABSORPTIOMETRY / DXA REASON FOR EXAM: Female, 72 years old. [id number] TECHNIQUE: Bone Mineral Density (BMD) measurements of lumbar spine and bilateral hips were obtained. COMPARISON: None. FINDINGS: Lumbar Spine (L1-L4): g/cm2 (0.910) / T-score (-1.0) / Z-score (1.1) Findings are suggestive of normal bone density with a low fracture risk. Left Femur Total: g/cm2 (0.809) / T-score (-1.1) / Z-score (0.5) Left Femoral Neck: g/cm2 (0.668) / T-score (-1.6) / Z-score (0.2) Right Femur Total: g/cm2 (0.822) / T-score (-1.0) / Z-score (0.6) Right Femoral Neck: g/cm2 (0.678) / T-score (-1.5) / Z-score (0.3) BD/Dexa Bone Density Study IMPRESSION: The patient is considered osteopenic as outlined below according to World [employer] Organization (WHO) criteria with a moderate fracture risk. Reference Information: The T-score is the number of standard deviations above or below the standard which is normal for young adults at their peak bone mineral density. The World Health Organization (WHO) interprets the T-scores as follows: Above -1 Normal bone density Between -1 and -2.5 Osteopenia Equal to / or below -2.5 Osteoporosis As a practical clinical guideline, osteopenia may be graded as follows: Mild -1 through -1.5 Moderate -1.6 through -2.0 Severe -2.1 through -2.4 The Z-score is the number of standard deviations above or below age-matched controls. A Z-score of less than -1.5 would be considered abnormal. References: 1. NIH Osteoporosis and Related Bone Diseases www osteo.org 2. International Society for Clinical Densitometry www iscd.org 3. National Osteoporosis Foundation www nof.org Electronically Signed: Carmine Alexander MD at 10:34 EDT ,
== END | disposition home or self-care (01) ==
LOC: OPBI 09:07
PROVIDERS: PCP Family Medicine; Referring Provider Obstetrics & Gynecology Gynecology; Visit Provider Obstetrics & Gynecology Gynecology
DX: N63.21 Unspecified lump in the left breast, upper outer quadrant (principal); Z78.0 Asymptomatic menopausal state
CPT/HCPCS: 76642; 77062; 77066; 77080; G0279

== ENCOUNTER 2024-02-18 23:03 | Emergency (ER) | payer MEDICARE, OTHER, SELFPAY ==
[2024-02-18 23:04] VITALS: BP 134/63; PULSE 70; RESP 15; TEMP 36.2; O2SAT 99; BMI 28.8
--- NOTE | 2024-02-18 23:32 | ED.VIS.LOWEX ---
HPI History of Present Illness Chief Complaint: Lower Extremity Injury Informant: patient Narrative Narrative: Patient has had intermittent pain in her right low back today. States she has been riding a bicycle lately off and on for exercise which is new for her. Patient states today when she had this pain, it was when she stood up to bear weight that she noticed it. She then felt like she could not bear weight on her right lower extremity due to the pain in her right low back. It did not radiate into her right lower extremity at all. No tingling. No bowel or bladder dysfunction. She felt like it was difficult to walk because of the pain. Then at other times, she was able to stand and walk without any pain whatsoever, but then it recurred, now it is gone again. She denies any falls or injuries. [facility] Medical History Abnormal electrocardiogram Cataracts, bilateral Dermatochalasis of upper and lower eyelids of both eyes Facial aging Facial rhytids Osteoarthritis Osteopenia Perioral rhytid Platysmal band of neck Premature ventricular contractions Right lower quadrant pain Rosacea Seasonal allergies Skin cancer Skin laxity Spigelian hernia Syncope Home Medications albuterol sulfate 90 mcg/actuation aerosol inhaler 1 dose inhalation Q6H PRN PRN Shortness Of Breath 25 days #18 grams 03/01/19 [History Last Taken Unknown] beclomethasone dipropionate 40 mcg/actuation aerosol inhaler 40 mcg inhalation DAILY PRN Asthma 03/01/19 [History Last Taken Unknown] conj estrogen-medroxyprogesterone 0.3 mg-1.5 mg tablet 1 tab PO DAILY 04/08/19 [History Last Taken 08/06/19 07:30] fluoxetine 10 mg tablet 10 mg PO .every other day 06/21/21 [History Last Taken Unknown] Allergy/AdvReac Type Severity Reaction Status Date / Time meloxicam AdvReac diarrhea Verified 02/18/24 23:07 oxycodone [From Percocet] AdvReac GI Upset Verified 02/18/24 23:07 Family History Father Asthma Diabetes Alcoholism Anxiety COPD (chronic obstructive pulmonary disease) Mother Cancer Grandfather Diabetes Grandmother Diabetes Surgical History History of arthroscopy of left knee History of colonoscopy S/P laparoscopic hernia repair (~04/15/19) Social History Smoking Status: Never smoker alcohol intake: current substance use type: does not use additional social history: DOES NOT USE ASPIRIN DOES NOT USE IBUPROFEN ROS ROS ED Constitutional Constitutional ED: Denies chills or fever(s) Musculoskeletal Musculoskeletal: Reports extremity pain; Denies neck pain Integumentary Denies Abrasions, rash or wounds Neurologic Neurologic: Denies paresthesias or weakness EXAM Physical Exam Const Vital Signs: 02/18/24 23:04 Temperature 97.2 F L Temperature Source Temporal Pulse Rate 70 Respiratory Rate 15 Blood Pressure 134/63 H Blood Pressure Mean 86 Pulse Ox 99 Oxygen Delivery Method Room Air Positive well nourished and well developed General Appearance ED: well developed and NAD Neck full ROM and supple Back/Spine normal ROM and normal to inspection Back/Spine Narrative: No tenderness. No rash. Patient indicates right upper SI joint area of pain earlier but nontender at this time. No CVA tenderness. Extremity normal to inspection and full ROM Extremity Narrative: Full range of motion both hips without any pain. Able to stand and weight-bear without any pain. Neuro oriented x3, no focal motor deficits and no sensory deficits noted Neuro Narrative: No clonus. Sensorium / Orientation: alert Deep Tendon Reflexes: Rt Patellar (L4): 2+, Lt Patellar (L4): 2+, Rt Ankle (S1): 2+ and Lt Ankle (S1): 2+ Deep Tendon Reflexes Back: Rt Patellar (L4): 2+, Lt Patellar (L4): 2+, Rt Ankle (S1): 2+ and Lt Ankle (S1): 2+ Plantar Reflex: Downgoing: bilateral Psych mental status grossly normal and thought process normal Skin no wounds Rashes: no rashes MDM MDM MDM Narrative Medical decision making narrative: Patient is indicating pain in the area of the right SI joint. She does not have pain currently. I reassured her, I do not think imaging will be helpful at this time, she has no midline pain or tenderness, given appropriate discharge instructions regarding sacroiliac dysfunction. Discharge Plan Triage Chief Complaint: Lower Extremity Injury ED Provider: Ayo,Forrest Dx/Rx/DC Orders Clinical Impression: Sacroiliac joint dysfunction of right side Instructions: Anatomy of the Sacroiliac Joint, ED Sacroiliitis Prescriptions: No Action albuterol sulfate 90 mcg/actuation HFA aerosol inhaler 1 dose INHALATION Q6H PRN PRN (Reason: Shortness Of Breath) 25 Days Qty: 18 beclomethasone dipropionate 40 mcg/actuation aerosol 40 mcg INHALATION DAILY PRN (Reason: Asthma) fluoxetine 10 mg tablet 10 mg PO .every other day conj estrog-medroxyprogest janes 1 EACH tablet 1 tab PO DAILY Patient Comments: TAKE 1 TABLET BY MOUTH EVERY DAY Primary Care Provider: Felix Araiza Referrals: Felix Araiza MD [Primary Care Provider] - 1 Week if not improving (or chiropractor) Disposition Disposition: Home, Self Care
== END 2024-02-18 23:42 | disposition home or self-care (01) ==
LOC: ED 23:40
PROVIDERS: Emergency Provider Emergency Medicine; PCP Family Medicine; Visit Provider Emergency Medicine
DX: M99.04 Segmental and somatic dysfunction of sacral region (principal); Z85.828 Personal history of other malignant neoplasm of skin
CPT/HCPCS: 99282

== ENCOUNTER → 2024-07-15 | Outpatient (CLI) | payer MEDICARE, OTHER, SELFPAY ==
--- NOTE | 2024-07-15 06:23 | ECHOD_ITS ---
Reason For Study: ATRIAL FIBRILLATION Procedure This was a 2D Doppler, Color Flow transthoracic echocardiogram. Exam performed in department. Left Ventricle Normal LV size. Mild concentric left ventricular hypertrophy. Left ventricular systolic function is normal. The left ventricular ejection fraction is 65 %. No regional wall motion abnormalities noted. Right Ventricle Normal RV size. Normal systolic function. Atria Normal left atrium. Normal right atrium. Mitral Valve Mild mitral valve prolapse. Moderate (2+) eccentric mitral valve insufficiency. Tricuspid Valve Normal tricuspid valve. Mild (1+) tricuspid valve insufficiency. Pulmonary artery systolic pressure is 33 mmHg. Aortic Valve Trisinus/trileaflet aortic valve. Pulmonic Valve Normal pulmonic valve. Great Vessels Normal aortic root. The pulmonary artery is normal size. Normal inferior vena cava. Pericardium/Pleural No pericardial effusion. MMode/2D Measurements & Calculations LVIDd: 4.9 cm IVSd: 1.4 cm LVOT diam: 1.9 cm LVIDs: 3.0 cm LVPWd: 1.2 cm LVOT area: 2.9 cm2 RVDd: 3.9 cm FS: 39.1 % asc Aorta Diam: 2.9 cm LAV(MOD-bp): 64.8 ml LVAd ap4: 25.4 cm2 LAV(MOD-bp) Indexed: 34.9 ml/m2 LVLd ap4: 7.2 cm LAV(MOD-sp2): 77.0 ml EDV(MOD-sp4): 71.9 ml LAV(MOD-sp4): 52.0 ml EDV(sp4-el): 76.3 ml LVAs ap4: 14.3 cm2 LVLs ap4: 6.2 cm ESV(MOD-sp4): 28.2 ml ESV(sp4-el): 28.2 ml EF(MOD-sp4): 60.8 % EF(sp4-el): 63.0 % LVAd ap2: 21.3 cm2 SV(MOD-sp4): 43.7 ml SV(MOD-sp2): 36.5 ml LVLd ap2: 6.5 cm EDV(MOD-sp2): 57.0 ml EDV(sp2-el): 58.6 ml LVAs ap2: 11.3 cm2 LVLs ap2: 5.7 cm ESV(MOD-sp2): 20.5 ml ESV(sp2-el): 19.0 ml EF(MOD-sp2): 64.0 % SV(sp4-el): 48.1 ml Ao sinus diam: 3.[address] Junction: 2.6 cm LA dimension(2D): 4.5 cm LA A4 area: 17.9 cm2 RA A4 area: 10.1 cm2 TAPSE: 2.1 cm Time Measurements MV dec time: 0.23 sec Doppler Measurements & Calculations MV E max howie: 126.1 cm/sec Lat Peak E' Howie: 9.9 cm/sec Med Peak E' Howie: 9.8 cm/sec MV A max howie: 73.1 cm/sec E/E' lat: 12.8 E/E' med: 12.9 MV E/A: 1.7 MV dec slope: 540.2 cm/sec2 Ao V2 max: 102.9 cm/sec LV V1 max: 95.1 cm/sec Ao max P.2 mmHg LV V1 max P.6 mmHg Ao V2 mean: 81.0 cm/sec LV V1 mean P.3 mmHg Ao mean P.8 mmHg LV V1 mean: 73.2 cm/sec Ao V2 VTI: 25.0 cm LV V1 VTI: 25.1 cm AV (velocity ratio): 1.0 HELIO(I,D): 3.0 cm2 HELIO(V,D): 2.7 cm2 SV(LVOT): 73.8 ml PA V2 max: 76.2 cm/sec PI end-d howie: 84.4 cm/sec PA max PG (full): 0.69 mmHg TR max howie: 272.4 cm/sec TR max P.7 mmHg ECHO/Echo Complete Interpretation Summary Normal LV size. Left ventricular systolic function is normal. The left ventricular ejection fraction is 65 %. Mild mitral valve prolapse. Moderate (2+) eccentric mitral valve insufficiency. Mild concentric left ventricular hypertrophy. Ordering Physician: Kay Foote Referring Physician: MD Jose G Felix Performed By: Nanda Nevarez RDCS
--- NOTE | 2024-07-15 17:29 | STRESSREP ---
Stress Test Report Pharmacologic myocardial perfusion stress test. 74-year-old lady with a history of mitral valve prolapse Resting EKG demonstrates sinus bradycardia with a rate of 54 bpm. Resting blood pressure is 118/62 mmHg. 0.4 mg of regadenoson was infused per usual protocol followed by rapid intravenous saline flush injection. Continuous EKG monitoring was performed. The maximum heart rate was 75 bpm which was 50% of max impacted heart rate the maximum workload was 1 metabolic equivalent. At rest there were no ST or T wave changes noted to suggest ischemia and at peak infusion nonspecific ST changes were noted which did not meet the criteria for ischemia. No clinical angina is noted. The final blood pressure was 116/62 mmHg. Myocardial perfusion protocol. 11.9 mCi of technetium 99m sestamibi was injected at rest. 0.4 mg of regadenoson was infused per usual protocol. At peak infusion 34.4 mCi of technetium 99m sestamibi was injected stress images were obtained stress and rest images were reconstructed and compared in the short axis vertical long and horizontal long axis. Gated images were also obtained. Perfusion SPECT analysis: Review of the stress images demonstrate normal uptake of tracer noted in all areas of the myocardium. The resting images similar demonstrated normal uptake of tracer noted in all areas of the myocardium. No areas of reversibility are noted to suggest ischemia and no previous infarct is noted. Gated SPECT analysis: The gated ejection fraction is 77%. Conclusion: Normal pharmacologic myocardial perfusion stress test. Preserved ejection fraction.
== END | disposition home or self-care (01) ==
LOC: CVS 06:21
PROVIDERS: PCP Family Medicine; Referring Provider Physician Assistant Medical; Visit Provider Physician Assistant Medical
DX: I47.29 Other ventricular tachycardia (principal); I48.0 Paroxysmal atrial fibrillation; R94.31 Abnormal electrocardiogram [ECG] [EKG]
CPT/HCPCS: 78452; 93017; 93306; A9500; A4216; J2785

== ENCOUNTER → 2024-07-15 | Outpatient (CLI) | payer MEDICARE, OTHER, SELFPAY | END | disposition home or self-care (01) | LOC: SL 19:47 | PROVIDERS: PCP Family Medicine; Referring Provider Orthopaedic Surgery; Visit Provider Nurse Practitioner Family | DX: R53.83 Other fatigue (principal); I48.0 Paroxysmal atrial fibrillation; I47.10 Supraventricular tachycardia, unspecified; G47.19 Other hypersomnia | CPT/HCPCS: 95810 ==

== ENCOUNTER 2024-10-02 21:15 | Emergency (ER) | payer MEDICARE, OTHER, SELFPAY ==
[2024-10-02] VITALS (13 sets, daily range): BP systolic 121–138; BP diastolic 54–118; PULSE 64–76; RESP 9–20; TEMP 36.9; O2SAT 97–99; BMI 28.6
--- NOTE | 2024-10-02 21:40 | EKG12_ITS ---
Test Reason : CP Blood Pressure : */* mmHG Vent. Rate : 68 BPM Atrial Rate : 68 BPM P-R Int : 158 ms QRS Dur : 104 ms QT Int : 414 ms P-R-T Axes : 70 -34 57 degrees QTcB Int : 440 ms Normal sinus rhythm Left axis deviation Septal infarct , age undetermined Abnormal ECG Confirmed by NITZA RICHARDS, DEONNA ([id number]), material expeditor ROSA ETIENNE ([id number]) on 10/06/2024 1:39:35 P M Referred By: BB Confirmed By: DEONNA GODDARD MD
--- NOTE | 2024-10-02 21:40 | ED.VIS.CHEST ---
HPI History of Present Illness Chief Complaint: Chest Pain Informant: patient Narrative Narrative: 74-year-old female was in her kitchen chopping vegetables when she started having midsternal chest discomfort. She states she felt some discomfort in her ears at the same time. That is all gone now and it has been kind of coming and going briefly since then. She denies any associated dyspnea, nausea, vomiting, presyncope or syncope, dyspnea, diaphoresis but she has felt a couple of palpitations here and there. She does this from time to time she has had PVCs in the past, she felt really poorly once when she was told she was in A-fib, and for that reason she is on Eliquis. She denies recent illness. [facility] Medical History Mitral valve prolapse PAF (paroxysmal atrial fibrillation) NSVT (nonsustained ventricular tachycardia) Skin laxity Platysmal band of neck Dermatochalasis of upper and lower eyelids of both eyes Perioral rhytid Facial rhytids Facial aging Skin cancer Cataracts, bilateral Seasonal allergies Osteoarthritis Abnormal electrocardiogram Rosacea Osteopenia Premature ventricular contractions Syncope Spigelian hernia Right lower quadrant pain Home Medications ?Medication ?Instructions ?Recorded ?Last Taken ?Type albuterol sulfate 90 mcg/actuation 1 dose inhalation Q6H PRN PRN 03/01/19 Unknown History aerosol inhaler Shortness Of Breath 25 days #18 grams beclomethasone dipropionate 40 40 mcg inhalation DAILY PRN Asthma 03/01/19 Unknown History mcg/actuation aerosol inhaler fluoxetine 10 mg tablet 10 mg PO .every other day 06/21/21 Unknown History apixaban 5 mg tablet (Eliquis) 5 mg PO BID #180 tabs 07/02/24 Unknown Rx metoprolol succinate 25 mg 25 mg PO DAILY 10/02/24 Unknown History tablet,extended release 24 hr Allergy/AdvReac Type Severity Reaction Status Date / Time meloxicam AdvReac diarrhea Verified 10/02/24 21:18 oxycodone (From Percocet) AdvReac GI Upset Verified 10/02/24 21:18 Family History Father Asthma Diabetes Alcoholism Anxiety COPD (chronic obstructive pulmonary disease) Mother Cancer Grandfather Diabetes Grandmother Diabetes Surgical History S/P laparoscopic hernia repair (~04/15/19) History of arthroscopy of left knee History of colonoscopy Social History Smoking Status: Never smoker alcohol intake: current substance use type: does not use additional social history: DOES NOT USE ASPIRIN DOES NOT USE IBUPROFEN ROS ROS ED Constitutional Constitutional ED: Denies chills or fever(s) Eyes Eyes: Denies change in vision or diplopia ENT ENT ED: Denies rhinorrhea or sore throat Cardiovascular Cardiovascular: Reports as per HPI, chest pain and palpitations Respiratory/Chest Respiratory/Chest: Denies cough or dyspnea Gastrointestinal Gastrointestinal: Denies abdominal pain, diarrhea, nausea or vomiting Genitourinary Genitourinary ED: Denies dysuria or hematuria Musculoskeletal Musculoskeletal: Denies back pain or neck pain Integumentary Denies abscess or rash Neurologic Neurologic: Denies headache(s), paresthesias or weakness Psychiatric Psychiatric: Denies anxiety or suicidal thoughts EXAM Physical Exam Const Vital Signs: 10/02/24 21:16 10/02/24 21:22 10/02/24 21:25 Temperature 98.4 F Temperature Source Temporal Pulse Rate 65 Respiratory Rate 18 Respiratory Effort Normal Non-Labored Blood Pressure 138/66 H Blood Pressure Mean 90 Pulse Ox 98 98 Oxygen Delivery Method Room Air 10/02/24 21:26 10/02/24 21:30 10/02/24 21:45 Temperature Temperature Source Pulse Rate 66 64 Respiratory Rate 9 L 16 Respiratory Effort Blood Pressure 133/54 H 132/55 H Blood Pressure Mean 76 77 Pulse Ox 98 98 Oxygen Delivery Method Room Air Room Air 10/02/24 21:45 10/02/24 22:00 10/02/24 22:15 Temperature Temperature Source Pulse Rate 67 65 Respiratory Rate 17 12 Respiratory Effort Blood Pressure 131/55 H 121/63 H Blood Pressure Mean 70 79 Pulse Ox 97 98 Oxygen Delivery Method Room Air Room Air 10/02/24 22:30 10/02/24 22:45 10/02/24 23:00 Temperature Temperature Source Pulse Rate 66 70 76 Respiratory Rate 9 L 20 H 13 Respiratory Effort Blood Pressure 128/55 H 131/118 H Blood Pressure Mean 75 124 Pulse Ox 98 99 99 Oxygen Delivery Method Room Air Positive well nourished and well developed General Appearance ED: well developed and NAD HEENT Reports moist mucous membranes normocephalic and atraumatic Eyes PERRL and EOMs intact bilaterally Neck full ROM and supple Resp normal respiratory effort and clear to auscultation bilaterally Cardio regular rate and regular rhythm Cardio Narrative: Occasional irregularity coexisting with PVCs on monitor. Soft systolic ejection murmur. GI non-tender and non-distended Auscultation: normoactive bowel sounds Palpation: soft Back/Spine no CVA tenderness General Back: other FROM Extremity normal to inspection General Extremety ED: Negative for edema, pulses abnormal or tenderness General Extremity: Negative for edema or pulses abnormal Neuro oriented x3, CN's II-XII intact bilaterally and no sensory deficits noted Sensorium / Orientation: awake and alert Motor Exam: strength 5/5 throughout Psych mental status grossly normal Skin no rashes or lesions noted and no wounds Heart Score History: Slightly/Non-Suspicious ECG: Normal Age: >/= 65 years Risk Factors: No Risk Factors Troponin: </= Normal Limit Score: 2 MDM MDM MDM Narrative Medical decision making narrative: Cardiac workup obtained, including a 1 view chest x-ray which on my interpretation is unremarkable, radiology in agreement. Her EKG shows a left axis, this is unchanged compared with her old, and no acute injury pattern or abnormal repolarization. Initial troponin is negative in the single digits. While waiting for second measurement she came in soon after onset of chest discomfort, the patient had no recurrence of her symptoms and her vital signs are normal. This is low risk for acute coronary syndrome even at age 74, as she has no risk factors, a heart score of 2, and in addition, had a negative stress test in just June of this year couple months ago. If her second troponin is negative, I support discharge home and close outpatient follow-up. History & Record Review Additional record(s) reviewed:: Prior outpatient record (Normal pharmacologic myocardial perfusion stress test 07/15/2024) Lab Data Attestation: I reviewed the patient's lab results. Labs: Laboratory Results - last 24 hr 10/02/24 21:23 WBC 7.4 RBC 4.55 Hgb 13.0 Hct 39.7 MCV 87.3 MCH 28.6 MCHC 32.7 RDW Std Deviation 41.9 RDW Coeff of Chay 13.1 Plt Count 237 MPV 9.5 Immature Gran % (Auto) 0.300 Neut % (Auto) 53.1 Lymph % (Auto) 32.4 [place] % (Auto) 10.6 H Eos % (Auto) 2.7 Baso % (Auto) 0.9 Absolute Neuts (auto) 4.0 Absolute Lymphs (auto) 2.41 Nucleated RBC % 0 Sodium 138 Potassium 3.8 Chloride 106 Carbon Dioxide 26.0 Anion Gap 6 BUN 24 H Creatinine 0.70 Estim Creat Clear Calc 65.69 Est GFR (MDRD) Af Amer 107 Est GFR (MDRD) Non-Af 88 BUN/Creatinine Ratio 34.5 H Glucose 104 Calcium 9.3 Troponin I High Sens 8 Radiography Diagnostic Testing: Clinical Impression(s) from Imaging Studies Chest X-Ray 10/02/24 21:45 IMPRESSION: No radiographic evidence of acute cardiopulmonary disease. Electronically Signed: Nickolas Bourgeois MD at 22:20 EST Reading Location ID and State: Pending sale to [facility] / [place] Tel , Service support , Rhythm Strip Rhythm Strip: Sinus Rhythm Rate: 68 Ectopy: PVC(s) EKG Initial EKG: Attestation: I personally reviewed and interpreted this EKG as follows: Interpretation: Sinus Rhythm, No Acute Injury Pattern and LAFB Prior EKG tracings: available for review Prior: Unchanged Discharge Plan Triage Chief Complaint: Chest Pain ED Provider: Forrest Rollins Dx/Rx/DC Orders Clinical Impression: Chest pain, unspecified Instructions: ED Chest Pain, Noncardiac Prescriptions: No Action albuterol sulfate 90 mcg/actuation HFA aerosol inhaler 1 dose INHALATION Q6H PRN PRN (Reason: Shortness Of Breath) 25 Days Qty: 18 beclomethasone dipropionate 40 mcg/actuation aerosol 40 mcg INHALATION DAILY PRN (Reason: Asthma) fluoxetine 10 mg tablet 10 mg PO .every other day Eliquis 5 mg tablet 5 mg PO BID Qty: 180 3RF metoprolol succinate 25 mg tablet extended release 24 hr 25 mg PO DAILY Primary Care Provider: Felix Araiza Referrals: Felix Araiza MD [Primary Care Provider] - 3-5 Days if not improving Print Language: Argentine Disposition Disposition: Home, Self Care
[2024-10-02] MEDS: Aspirin 81 MG TAB.CHEW 162 MG PO (21:44)
--- NOTE | 2024-10-02 21:45 | RAD_ITS ---
INDICATION: chest pain EXAMINATION/TECHNIQUE: X-RAY - portable upright AP chest x-ray COMPARISON: 11/03/2012 FINDINGS: LINES/DEVICES: None. LUNGS: No consolidation, edema or effusion. No pneumothorax. MEDIASTINUM AND CARDIOVASCULAR STRUCTURES: Cardiac silhouette not enlarged. Central airways and mediastinal contour are unremarkable. BONES AND SOFT TISSUES: No acute changes. RAD/Chest 1 View (Portable) IMPRESSION: No radiographic evidence of acute cardiopulmonary disease. Electronically Signed: Nickolas Bourgeois MD at 22:20 EST ,
[2024-10-02 21:50] LABS: Absolute Lymphocyte Count 2.41 X10^3/uL (0.83-4.51); Basophil# 0.07 X10^3/uL; Basophil% 0.9 % (0-1); Eosinophils% 2.7 % (0-5); Hematocrit 39.7 % (37-47); Lymphocyte # 2.41 X10^3/ul (0.83-4.51); Lymphocyte % 32.4 % (19-41); Mean Corp Hgb Conc 32.7 g/dL (32-36); Mean Corpuscular Hgb 28.6 pg (27.0-32.0); Mean Corpuscular Volume 87.3 fL (81-99); Mean Platelet Vol. 9.5 fl (6.2-12.0); Monocyte# 0.79 X10^3/uL; Monocyte% 10.6 % (0-10); NRBC Flagged by Analyzer 0 % (0-5); Neutrophil # 3.95 X10^3/uL (2.7-7.7); Neutrophil % 53.1 % (47-70); Platelet Count 237 K/mm3 (150-450); RBC Distribution Width CV 13.1 % (11.6-14.6); RBC Distribution Width SD 41.9 fl (35.1-43.9); Red Blood Count 4.55 M/mm3 (4.2-5.4); White Blood Count 7.4 K/mm3 (4.4-11.0)
[2024-10-02 22:11] LABS: Anion Gap 6 (5-15); BUN 24 mg/dL (7-18); BUN/Creat Ratio 34.5 RATIO (10-20); Calcium,Total 9.3 mg/dL (8.5-10.1); Chloride 106 mmol/L (98-107); EST Glomerular Filtration Rate 88 mL/min (>60); Est Glom Filt Rate - Afr Amer 107 mL/min (>60); Estimated Creatinine Clearance 65.69 ml/min; Glucose 104 mg/dL (74-106); Potassium 3.8 mmol/L (3.5-5.1); Sodium Level 138 mmol/L (136-145); Troponin-I HS (w/2H Reflex) 8 pg/mL (3.0-54.0)
[2024-10-02 23:47] LABS: Reflex Troponin-HS? (from REC) Y
[2024-10-03] VITALS: BP 134/55; PULSE 63; RESP 17; O2SAT 98
[2024-10-03 00:15] VITALS: PULSE 72; RESP 19; O2SAT 97
[2024-10-03 00:17] LABS: Troponin-I HS 8 pg/mL (3.0-54.0)
== END 2024-10-03 00:35 | disposition home or self-care (01) ==
PROVIDERS: Emergency Provider Emergency Medicine; PCP Family Medicine; Visit Provider Emergency Medicine
DX: R07.9 Chest pain, unspecified (principal); I48.0 Paroxysmal atrial fibrillation; Z79.01 Long term (current) use of anticoagulants
CPT/HCPCS: 71045; 80048; 84484; 85025; 93005; 99284; A4216